=== PATIENT | male | born 1995 | race Caucasian/White ===

== ENCOUNTER 2021-02-11 13:46 | Emergency (ER) | payer BC ==
[~2021-02-11] VITALS: Ht 175.3 cm; Wt 63.5 kg
[2021-02-11 13:50] VITALS: BP 177/106
== END 2021-02-11 14:21 | disposition home or self-care (01) ==
LOC: ER 13:46
DX: R21 Rash and other nonspecific skin eruption (principal); L29.9 Pruritus, unspecified